=== PATIENT | male | born 1975 | race Two or more races ===

== ENCOUNTER 2019-06-19 10:43 | Emergency (ER) | payer OTHER ==
[~2019-06-19] VITALS: Ht 182.9 cm; Wt 98.9 kg
[2019-06-19 10:50] VITALS: Ht 182.9 cm; Wt 98.9 kg
[2019-06-19 11:52] LABS: BASOPHIL % 0.7 % (0-2); PLATELET COUNT 141 x10^3mcL (130-400); RED CELL DISTRIBUTION WIDTH 15.7 % (11.5-14.5)
[2019-06-19 12:04] LABS: CALCIUM 9.2 mg/dL (8.5-10.1); CARBON DIOXIDE 22.2 mmol/L (21-32); CREATININE SERUM 1.4 mg/dL (0.7-1.3); POTASSIUM SERUM 3.9 mmol/L (3.5-5.1)
[2019-06-19 12:09] LABS: ALBUMIN 3.9 g/dL (3.4-5.0); BILIRUBIN TOTAL 0.3 mg/dL (0.20-1.00); TOTAL PROTEIN, SERUM 7.4 g/dL (6.4-8.2)
[2019-06-19 12:50] LABS: AMPHETAMINE QUAL UR NONE DETECTED (See below)
[2019-06-19 17:01] VITALS: BP 114/74
== END 2019-06-19 17:01 | disposition home or self-care (01) ==
LOC: ED 10:43
PROVIDERS: Emergency Medicine
DX: R07.89 Other chest pain (principal); F12.90 Cannabis use, unspecified, uncomplicated
CPT/HCPCS: J2060; J7030; Q0092